=== PATIENT | female | born 1935 | race Two or more races ===

== ENCOUNTER → 2017-10-16 | Emergency (ER) | payer OTHER ==
[~2017-10-16] VITALS: Ht 157.5 cm; Wt 49.4 kg
== END | disposition home or self-care (01) ==
LOC: ER 12:45
DX: S01.02XA Laceration with foreign body of scalp, initial encounter (principal); S30.0XXA Contusion of lower back and pelvis, initial encounter; S29.8XXA Other specified injuries of thorax, initial encounter; S19.80XA Other specified injuries of unspecified part of neck, initial encounter; W01.118A Fall on same level from slipping, tripping and stumbling with subsequent striking against other sharp object, initial encounter; Y93.01 Activity, walking, marching and hiking; Y92.017 Garden or yard in single-family (private) house as the place of occurrence of the external cause; Y99.8 Other external cause status

== ENCOUNTER 2018-05-21 13:25 | Outpatient (CLI) | payer OTHER | END 2018-05-21 13:49 | disposition home or self-care (01) | LOC: NUCLEAR 13:25 | DX: M81.0 Age-related osteoporosis without current pathological fracture (principal); M80.00XA Age-related osteoporosis with current pathological fracture, unspecified site, initial encounter for fracture ==

== ENCOUNTER 2018-11-15 08:21 | Day surgery (SDC) | payer OTHER | END 2018-11-15 15:30 | disposition home or self-care (01) | LOC: AMB-ENDOS 08:21 | DX: K64.1 Second degree hemorrhoids (principal) ==

== ENCOUNTER 2018-11-25 09:50 | Outpatient (CLI) | payer OTHER | END 2018-11-25 09:54 | disposition home or self-care (01) | LOC: RAD 501 09:50 | DX: N20.0 Calculus of kidney (principal) ==

== ENCOUNTER 2018-12-02 17:49 | Emergency (ER) | payer OTHER ==
[~2018-12-02] VITALS: Ht 160 cm; Wt 49.0 kg
[2018-12-02] MEDS ORDERED: METFORMIN HCL500 MG (17:59)
== END 2018-12-02 21:24 | disposition designated cancer center or children's hospital (05) ==
LOC: ER 17:49
DX: I62.01 Nontraumatic acute subdural hemorrhage (principal); S02.40EA Zygomatic fracture, right side, initial encounter for closed fracture; S01.121A Laceration with foreign body of right eyelid and periocular area, initial encounter; W01.118A Fall on same level from slipping, tripping and stumbling with subsequent striking against other sharp object, initial encounter; Y93.E9 Activity, other interior property and clothing maintenance; Y92.010 Kitchen of single-family (private) house as the place of occurrence of the external cause; Y99.8 Other external cause status

== ENCOUNTER → 2018-12-10 | Emergency (ER) | payer OTHER ==
[~2018-12-10] VITALS: Ht 152.4 cm; Wt 49.0 kg
[~2018-12-10] MED LIST: METFORMIN HCL500 MG
== END | disposition home or self-care (01) ==
LOC: ER 09:55
DX: Z48.02 Encounter for removal of sutures (principal)

== ENCOUNTER 2019-04-29 12:50 | Outpatient (CLI) | payer OTHER | END 2019-04-29 12:52 | disposition home or self-care (01) | LOC: TOM 12:50 | DX: I62.03 Nontraumatic chronic subdural hemorrhage (principal) ==

== ENCOUNTER 2020-01-13 09:13 | Outpatient (CLI) | payer OTHER | END 2020-01-13 09:20 | disposition home or self-care (01) | LOC: SONOGRAMA 09:13 → MAMO-SONO 09:45 | DX: E06.3 Autoimmune thyroiditis (principal); E03.8 Other specified hypothyroidism; E04.2 Nontoxic multinodular goiter ==

== ENCOUNTER 2020-03-20 13:16 | Outpatient (CLI) | payer OTHER | END 2020-03-20 13:20 | disposition home or self-care (01) | LOC: LAB 13:16 | DX: R05 Cough (principal); Z20.828 Contact with and (suspected) exposure to other viral communicable diseases; Z11.59 Encounter for screening for other viral diseases ==

== ENCOUNTER 2020-05-24 13:00 | Outpatient (CLI) | payer OTHER | END 2020-05-24 13:09 | disposition home or self-care (01) | LOC: NUCLEAR 13:00 | PROVIDERS: ATTEND Internal Medicine Rheumatology | DX: M81.0 Age-related osteoporosis without current pathological fracture (principal) ==

== ENCOUNTER 2020-07-02 07:54 | Outpatient (CLI) | payer OTHER | END 2020-07-02 08:00 | disposition home or self-care (01) | LOC: NUCLEAR 07:54 | PROVIDERS: ATTEND Internal Medicine Cardiovascular Disease | DX: I25.10 Atherosclerotic heart disease of native coronary artery without angina pectoris (principal); I11.9 Hypertensive heart disease without heart failure | CPT/HCPCS: 78452; 93017; A9500; J0153 ==

== ENCOUNTER 2020-10-26 07:14 | Outpatient (CLI) | payer OTHER | END 2020-10-26 07:24 | disposition home or self-care (01) | LOC: RAD 07:14 → MAMO-SONO 07:15 → RAD 07:24 → RX STUDY 08:15 | PROVIDERS: ATTEND Specialist | DX: E03.8 Other specified hypothyroidism (principal); E04.1 Nontoxic single thyroid nodule; J45.998 Other asthma; R13.11 Dysphagia, oral phase; R13.13 Dysphagia, pharyngeal phase; R13.19 Other dysphagia; R13.10 Dysphagia, unspecified ==

== ENCOUNTER 2021-04-06 10:51 | Outpatient (CLI) | payer OTHER | END 2021-04-06 10:58 | disposition home or self-care (01) | LOC: RAD 10:51 | PROVIDERS: ATTEND Specialist | DX: J45.998 Other asthma (principal) ==

== ENCOUNTER 2021-12-15 08:32 | Outpatient (CLI) | payer OTHER | END 2021-12-15 08:34 | disposition home or self-care (01) | LOC: MRI 08:32 | PROVIDERS: ATTEND Specialist | DX: I62.02 Nontraumatic subacute subdural hemorrhage (principal) | CPT/HCPCS: 70553; Q9965 ==

== ENCOUNTER 2022-05-29 12:31 | Outpatient (CLI) | payer OTHER | END 2022-05-29 12:32 | disposition home or self-care (01) | LOC: NUCLEAR 12:31 | PROVIDERS: ATTEND Internal Medicine Rheumatology | DX: M81.0 Age-related osteoporosis without current pathological fracture (principal) ==

== ENCOUNTER → 2022-05-29 12:59 | Outpatient (CLI) | payer OTHER | END | disposition home or self-care (01) | LOC: LAB 12:59 | PROVIDERS: ATTEND Internal Medicine Rheumatology | DX: M81.0 Age-related osteoporosis without current pathological fracture (principal); E55.9 Vitamin D deficiency, unspecified ==

== ENCOUNTER 2023-05-07 12:52 | Emergency (ER) | payer OTHER ==
[~2023-05-07] VITALS: Ht 160 cm; Wt 49.4 kg
[2023-05-07] MEDS ORDERED: BUSPIRONE HCL5 MG PO (13:40)
[2023-05-07] MEDS ORDERED: JANUVIA25 MG PO (13:40)
[2023-05-07] MEDS ORDERED: SERTRALINE HCL50 MG PO (13:40)
== END 2023-05-07 17:53 | disposition home or self-care (01) ==
LOC: ER 12:52
PROVIDERS: General Practice
DX: U07.1 COVID-19 (principal)

== ENCOUNTER → 2024-10-14 13:52 | Outpatient (CLI) | payer OTHER ==
[~2024-10-14 13:52] MED LIST changes: +BUSPIRONE HCL5 MG PO; +JANUVIA25 MG PO; +SERTRALINE HCL50 MG PO
== END | disposition home or self-care (01) ==
LOC: NUCLEAR 13:00
PROVIDERS: ATTEND Internal Medicine Rheumatology
DX: M81.0 Age-related osteoporosis without current pathological fracture (principal)

== ENCOUNTER 2025-04-29 12:24 | Outpatient (CLI) | payer OTHER | END 2025-04-29 12:30 | disposition home or self-care (01) | LOC: RAD 12:24 | PROVIDERS: ATTEND Specialist | DX: S22.32XA Fracture of one rib, left side, initial encounter for closed fracture (principal); S62.609A Fracture of unspecified phalanx of unspecified finger, initial encounter for closed fracture ==